=== PATIENT | male | born 1970 | race Caucasian/White ===

== ENCOUNTER 2018-08-18 10:12 | Day surgery (SDC) | payer OTHER ==
[~2018-08-18] VITALS: Ht 188 cm; Wt 153.8 kg
[~2018-08-18 10:12] MED LIST: HYDACE5 PO; NAPR550 PO
--- NOTE | 2018-08-18 10:55 | NUR ---
08/18/18 1055 Ata Dunaway 1ST IV ATTEMPT IN RAC UNSUCCESSFUL, ORSC.BDK 2ND IV ATTEMPT IN RH SUCCESSFUL, ORSC.BDK
== END 2018-08-18 12:35 | disposition home or self-care (01) ==
LOC: ORSCSDS 10:12
PROVIDERS: Surgery
PROC: 0DBP8ZX Excision of Rectum, Via Natural or Artificial Opening Endoscopic, Diagnostic (ICD-10-PCS; principal; 2018-08-18 11:15)
DX: K62.5 Hemorrhage of anus and rectum (principal); K62.1 Rectal polyp; G47.33 Obstructive sleep apnea (adult) (pediatric); E66.01 Morbid (severe) obesity due to excess calories; Z68.41 Body mass index [BMI] 40.0-44.9, adult
CPT/HCPCS: 88305; J2250; J2704; J7120